=== PATIENT | male | born 2000 | race Caucasian/White ===

== ENCOUNTER → 2024-04-08 | Outpatient (CLI) | payer OTHER | LOC: M SOG 09:07 | PROVIDERS: ATTEND Orthopaedic Surgery | DX: M54.2 Cervicalgia (principal); M25.511 Pain in right shoulder ==

== ENCOUNTER 2024-05-07 10:29 | Day surgery (SDC) | payer OTHER ==
[~2024-05-07] VITALS: Ht 175.3 cm; Wt 81.8 kg
[2024-05-07] MEDS ORDERED: ROCURONIUM BROMIDE 50MG/5ML VIAL As Ordered ONE (11:07)
[2024-05-07] MEDS ORDERED: LIDOCAINE 2% 100MG/5ML SDV (FOR ANES.) As Ordered ONE (11:07)
[2024-05-07] MEDS ORDERED: fentaNYL 100 MCG/2 ML INJECTION As Ordered ONE (11:07)
[2024-05-07] MEDS ORDERED: ONDANSETRON 4MG 2ML VIAL As Ordered ONE (11:07)
[2024-05-07] MEDS ORDERED: MIDAZOLAM INJ 2MG/2ML VIAL As Ordered ONE (11:07)
[2024-05-07] MEDS ORDERED: propofoL 200 MG/20 ML VIAL As Ordered ONE (11:07)
[2024-05-07] MEDS ORDERED: KETOROLAC 60MG 2ML VIAL As Ordered ONE (11:15)
[2024-05-07] MEDS: fentaNYL 100 MCG/2 ML INJECTION IV PRN (13:20)
[2024-05-07] MEDS: MIDAZOLAM INJ 2MG/2ML VIAL IV PRN (13:20)
[2024-05-07] MEDS: LIDOCAINE 1% SDV 5ML VIAL PN ONE (13:27)
[2024-05-07] MEDS: EPINEPHrine INJ 1 MG/ML 1ML AMP PN ONE (13:27)
[2024-05-07] MEDS: ROPIvacaine 0.5% 30ML VIAL PN ONE (13:27)
[2024-05-07] MEDS: dexAMETHasone 10MG/1ML VIAL PRES.FREE PN ONE (13:27)
[2024-05-07] MEDS: ceFAZolin SOD 2 GM in IV 1 EA IV ONE (14:11)
[2024-05-07] MEDS: TRANEXAMIC ACID 100 MG/ML 10ML VIAL IV ONE (14:11)
[2024-05-07] MEDS ORDERED: SUGAMMADEX SODIUM 500 MG/5 ML VIAL (BRIDION) As Ordered ONE (14:39)
[2024-05-07] MEDS: TRANEXAMIC ACID 100 MG/ML 10ML VIAL As Ordered ONE (14:40)
[2024-05-07] MEDS ORDERED: ACETAMINOPHEN 1000MG 100ML IV BAG As Ordered ONE (14:54)
[2024-05-07] MEDS ORDERED: SEVOFLURANE INHAL SOLN 250 ML BTL As Ordered ONE (15:30)
[2024-05-07] MEDS: EPINEPHrine 1MG/ML INJ 30ML MD-VIAL As Ordered ONE (16:33)
[2024-05-07] MEDS: VANCOMYCIN 500MG/10ML VIAL As Ordered ONE (16:37)
[2024-05-07] MEDS ORDERED: dexmedeTOMIDine (4MCG/ML)200MCG/50ML BTL (PRECEDEX) As Ordered ONE (16:58)
[2024-05-07] MEDS ORDERED: MORPHINE 2 MG/ML 1ML VIAL IV PRN (17:35)
[2024-05-07] MEDS ORDERED: ONDANSETRON 4MG 2ML VIAL IV PRN (17:35)
[2024-05-07] MEDS ORDERED: fentaNYL 100 MCG/2 ML INJECTION IV PRN (17:35)
[2024-05-07] MEDS ORDERED: oxyCODONE 5MG TAB PO PRN (17:35)
[2024-05-07 19:23] VITALS: BP 127/66; TEMP 97.9; O2SAT 100
== END 2024-05-07 19:45 | disposition home or self-care (01) ==
LOC: M SDC 10:29
PROVIDERS: ATTEND Orthopaedic Surgery
DX: S43.431A Superior glenoid labrum lesion of right shoulder, initial encounter (principal); M75.41 Impingement syndrome of right shoulder; Y99.1 Military activity; W19.XXXA Unspecified fall, initial encounter; Y92.84 Military training ground as the place of occurrence of the external cause
CPT/HCPCS: 23120; 29806; 29826; C1713; C9290; J0131; J0171; J0665; J0690; J1100; J1885; J2250; J2405; J3010; J3370